=== PATIENT | female | born 1960 | race African-American/Black ===

== ENCOUNTER 2022-09-07 20:06 | Emergency (ER) | payer BC, OTHER ==
[~2022-09-07] VITALS: Ht 165.1 cm; Wt 80.5 kg
[2022-09-07 20:49] VITALS: BP 128/79
[2022-09-07] MEDS ORDERED: BENZ200C52 PO (21:47)
[2022-09-07] MEDS ORDERED: ACET-2708 PO (22:09)
== END 2022-09-07 22:09 | disposition home or self-care (01) ==
LOC: ER 20:06
DX: R05.3 Chronic cough (principal); I10 Essential (primary) hypertension; Z77.120 Contact with and (suspected) exposure to mold (toxic)
CPT/HCPCS: 71045; 99283

== ENCOUNTER 2022-10-15 16:39 | Emergency (ER) | payer BC ==
[~2022-10-15] VITALS: Ht 165.1 cm; Wt 76.0 kg
[~2022-10-15 16:39] MED LIST: ACET-2708 PO; BENZ200C52 PO
[2022-10-15] MEDS ORDERED: IBUPROFEN 600MG TABLET PO ONE (18:45)
[2022-10-15 19:16] VITALS: BP 141/84
[2022-10-15] MEDS ORDERED: ACET-2708 PO (19:41)
[2022-10-15] MEDS ORDERED: CYCL5TAB MT (19:47)
== END 2022-10-15 19:50 | disposition home or self-care (01) ==
LOC: ER 16:39
DX: M25.512 Pain in left shoulder (principal); M25.562 Pain in left knee; I10 Essential (primary) hypertension; Z90.710 Acquired absence of both cervix and uterus
CPT/HCPCS: 73030; 73090; 73562; 99284